=== PATIENT | male | born 1960 | race Caucasian/White ===

== ENCOUNTER → 2016-06-05 | Outpatient (CLI) | payer OTHER ==
[~2016-06-05] VITALS: Ht 170.2 cm; Wt 81.3 kg
[~2016-06-05] MED LIST: AMARYL4 MG; CELEBREX 200 M200 M1 PO; FENOFIBRATE160 MG PO; HYDROCODON-ACE1 EAC5 PO; HYDROCODONE-AP1 EAC6 PO; INVOKAMET 150-1 EACH PO; INVOKANA300 MG PO; LIALDA1.2 GM PO; LIPITOR10 MG; LISINOPRIL5 MG PO; MEDROLDOSEPACK PO; METFORMIN HCL500 MG PO; NEURONTIN 300300 M1 PO; NEURONTIN100 MG PO; PAXIL10 MG PO; PROTONIX40 M1 PO; VICTOZA PO; ZANAFLEX4 MG PO
--- NOTE | ~2016-06-05 | HPC ---
[facility] [place] [address] PAIN MANAGEMENT CONSULTATION Name: MOMO BURCH RENUKA Room #: REG [facility] [place]#: [id number] Admission: 06/05/16 Attend Phys: Romulo Ramires MD Discharge: Date of : 64 Report #: [id number] THIS REPORT FOR: //name// CC: Ron Ramires DATE OF SERVICE: 06/05/2016 FOLLOWUP COMPLAINT: New pain in the right shoulder after lifting a mattress at work. FOLLOWUP HISTORY: The patient is a 55-year-old gentleman who has been followed in the pain clinic because of chronic pain in his back. He suffers from post-laminectomy syndrome. He is also status post C5-C6 diskectomy. He was working at his job about 4 days ago. 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 He lifted a mattress. Since that time, he has had pain and discomfort involving his right shoulder. He was unable to lift it from his side greater than 90 degrees. He was unable to raise it in front of him greater than 90 degrees. Moving his arm posteriorly is not quite as problematic. He rates his pain as a 9/10 in the right shoulder. His left low back area is rated as a 4/10 at this juncture. He finds that his shoulder shows some signs of spasming. He has not taken antispasmodic at this juncture, but has used Zanaflex in the past and found that this was helpful. MEDICATIONS: Hydrocodone one p.o. q. 8 hours p.r.n. pain, gabapentin 300 mg 1 p.o. t.i.d., Zestril 5 mg, Amaryl 4 mg, Invokana 300 mg, Paxil 10 mg, Protonix 40 mg, Lipitor 10 mg, Glucophage 500 mg b.i.d., fenofibrate 160 mg, Lialda 1.2 grams daily. IMPRESSION: 1. Right shoulder pain quite problematic at this juncture after lifting a mattress while at work. We will provide the patient with a Medrol Dosepak. He has pain and discomfort in the right trapezius scaphoid scapula and shoulder area in the anterior deltoid and posterior deltoid areas. 2. Status post C5-C6 diskectomy. 3. Osteoarthritis, status post bilateral hip replacement in 2002. 4. Management of high risk medications. RECOMMENDATIONS: We discussed treatment options with the patient. At this juncture, we will provide the patient with Zanaflex 4 mg 1 p.o. t.i.d., Ava 10/325 one p.o. q. 8 hours p.r.n. pain and gabapentin 300 mg 1 p.o. t.i.d. He will take the Medrol Dosepak as prescribed. Hopefully, this will help that shoulder pain calm down. We explained that sometimes trigger points can be helpful. Given that he has a global level of discomfort, no specific trigger [address] [address] PAIN MANAGEMENT CONSULTATION Name: MOMO BURCH Room #: REG [facility] Sarah#: [id number] Admission: 06/05/16 Attend Phys: Romulo Ramires MD Discharge: Date of : 64 Report #: [id number] point can be found today. If his pain continues to be problematic, it may in the future require imaging to determine whether or not he has a rotator cuff tear. We would like to thank you for letting us participate in his care. We hope he continues to improve. <ELECTRONICALLY SIGNED> By: Romulo Ramires MD 06/26/16 1018 [id number] [id number] Romulo Ramires MD /nt
[2016-06-05 08:55] VITALS: BP 115/69
== END ==
LOC: PAIN 07:05
DX: M16.0 Bilateral primary osteoarthritis of hip (principal); M96.1 Postlaminectomy syndrome, not elsewhere classified; F17.210 Nicotine dependence, cigarettes, uncomplicated

== ENCOUNTER → 2016-10-03 | Outpatient (CLI) | payer OTHER ==
[~2016-10-03] VITALS: Ht 170.2 cm; Wt 80.6 kg
--- NOTE | ~2016-10-03 | HPC ---
[facility] [place] [address] PAIN MANAGEMENT CONSULTATION Name: MOMO BURCH [id number] Admission: 10/03/16 Attend Phys: Romulo Ramires MD Discharge: Date of : 64 Report #: [id number] THIS REPORT FOR: //name// CC: Ron Ramires DATE OF SERVICE: 10/03/2016 DATE OF SERVICE: 10/03/2016 PRIMARY PHYSICIAN: Ron Elliott M.D. CHIEF COMPLAINT: There is some pain in the area where the nerve stimulator replacement is. FOLLOWUP HISTORY: The patient is a 56-year-old gentleman, who has been followed in the pain clinic because of low back pain and neck pain. He states that he has a spinal cord stimulator in place. He finds that is helpful. He states that the battery is sore in the area of his buttocks. He notes that when he is working, it could be quite problematic. 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 When he gets on his back and crawls on certain places, it could be quite painful. He feels that his medications are helpful. He has not noted any fevers, chills nor has he noted any significant breakdown in the area of the generator. He feels that this generator was larger than the old one and because of this he does not sit in the old pocket as well. PHYSICAL EXAMINATION: Blood pressure 127/76, pulse 91, respiratory rate 14, room air saturation 96%. The patient has a generator in the right buttocks area. He has little subcutaneous fat. In the upper left corner of the generator, there is an area of reddening. The skin has not broken down. Pressure in this area causes the patient to note increased pain and discomfort. This area is without subcutaneous fat and appears quite thin. Palpation in this area as well as in the lower portion of the generator cause the patient to feel uncomfortable to light palpation and movement of the generator. IMPRESSION: 1. Chronic intractable back pain, status post L4-L5 fusion. 2. Severe left hip pain status post hip replacement. 3. Cervicalgia. Status post C5 diskectomy as stimulator placement up in the cervical area. 4. Management of high risk medications. RECOMMENDATIONS: We discussed treatment options with the patient. We will renew his gabapentin, hydrocodone, Celebrex and tizanidine. Evaluation of the generator area indicates some thinning of the skin in the left upper quadrant with some slight reddening. There is no evidence of breakdown, [place] [address] PAIN MANAGEMENT CONSULTATION Name: MACRINMOMO RENUKA Room #: REG [facility]#: [id number] Admission: 10/03/16 Attend Phys: Romulo Ramires MD Discharge: Date of : 64 Report #: [id number] significantly thin. Light touch in this area does cause increased pain and discomfort. RECOMMENDATIONS: We have discussed this with the patient. I would recommend that he see his physician for reevaluation of the generator area. The patient will follow up in the next month with Dr. Pantoja. We would like to thank you for letting us participate in his care. We hope he continues to improve. By: [id number] [id number] Romulo Ramires MD /nt
[2016-10-03 09:54] VITALS: BP 127/76
== END ==
LOC: PAIN 07:08
DX: G89.29 Other chronic pain (principal); M25.552 Pain in left hip; Z96.642 Presence of left artificial hip joint; F17.210 Nicotine dependence, cigarettes, uncomplicated; F32.9 Major depressive disorder, single episode, unspecified

== ENCOUNTER → 2016-11-01 | Outpatient (CLI) | payer OTHER ==
[~2016-11-01] VITALS: Ht 170.2 cm; Wt 82.1 kg
[~2016-11-01] MED LIST changes: +CHANTIX1 MG PO
--- NOTE | ~2016-11-01 | HPC ---
[facility] [place] [address] PAIN MANAGEMENT CONSULTATION Name: MOMO BURCH [id number] Admission: 11/01/16 Attend Phys: Jad Pantoja MD Discharge: Date of : 64 Report #: [id number] THIS REPORT FOR: //name// CC: Ron Pantoja DATE OF SERVICE: 11/01/2016 Followup visit for chronic low back pain and cervicalgia with spinal cord stimulator. I am seeing the patient in followup, he saw Dr. Ramires on 10/03. His incision is healing from his spinal cord stimulator battery replacement, but there is quite a bit of edema in the pocket. This is a new pocket, so edema is not uncommon. I did not aspirate it. To see if it is serous, I felt that it would be better to leave the pocket intact since there is no drainage and the wound is healing nicely. It does not appear to be infected, but we will watch it carefully. He is here today for renewal of his pain medication. Pain score is a 6-7/10. He continues to use medicines as described before under terms of our opioid agreement. Some Percocet was given to him at the time of surgery and he acknowledged that to me today, I have agreed that he can take some of that. He does not notice much difference between the Percocet and the oxycodone for pain relief. Medications currently therefore are Celebrex 200 mg daily, gabapentin 300 mg t.i.d., hydrocodone 10/325 one tablet t.i.d., tizanidine as needed, Chantix, hydrocodone 10/325 or the remaining postoperative oxycodone 10/325 q.8 hours as needed for pain. Renewal prescriptions were provided to carry him through the next 2 months to 3 months and I will see him back in the clinic as needed for renewal. We reviewed our opioid contract in detail, the importance, the responsibilities of the patient. Urine drug screens will be performed periodically. By: [id number] [id number] Jad Pantoja MD /nt
[2016-11-01 12:42] VITALS: BP 111/71
== END | disposition home or self-care (01) ==
LOC: PAIN 06:43
DX: M54.5 Low back pain (principal); M54.2 Cervicalgia; F17.210 Nicotine dependence, cigarettes, uncomplicated; Z98.890 Other specified postprocedural states; Z79.899 Other long term (current) drug therapy

== ENCOUNTER → 2017-01-30 | Outpatient (CLI) | payer OTHER ==
[~2017-01-30] VITALS: Ht 170.2 cm; Wt 81.9 kg
[~2017-01-30] MED LIST changes: +[UNRECOGNIZED DRUG - OTHER] PO
--- NOTE | ~2017-01-30 | HPC ---
[facility] [address] [place] [address] PAIN MANAGEMENT CONSULTATION Name: MOMO BURCH Room #: REG [facility] Gertrude.#: [id number] Admission: 01/30/17 Attend Phys: Romulo Ramires MD Discharge: Date of : 64 Report #: [id number] THIS REPORT FOR: //name// CC: Ron Ramires DATE OF SERVICE: 01/30/2017 FOLLOWUP COMPLAINT: Here for medication refill and the pain where the stimulator pack is much more comfortable. FOLLOWUP HISTORY: The patient is a 56-year-old gentleman. As you recall, he works in the [employer]. He had an area of thinning scan where his generator pack was placed. He has had that examined and improved upon. He finds this medications continued to be helpful. He would like to have his medications renewed. He has had no complications with them. PHYSICAL EXAMINATION: Blood pressure 142/87, respiratory rate 16, room air saturation is 97%, pulse 83, height 5 feet 7 inches, weight 180 pounds, BMI is 28. He rates his pain score today as a 6-7. IMPRESSION: 1. History of right shoulder pain status post C5-C6 diskectomy. Dorsal column stimulator placement in the neck. 2. History of osteoarthritis, status post bilateral hip replacement in 2002. 3. High-risk medication management. RECOMMENDATIONS: We discussed treatment options with the patient. We will renew his medications. Risks and benefits of opioid medications have been discussed. Possibility of addiction and tolerance were reviewed. The patient feels that his medications continued to be helpful and enable him to remain gainfully employed. We will renew the patient's opioid medications. A script for hydrocodone one p.o. t.i.d. and gabapentin have been renewed. He will also continue with Celebrex and tizanidine. We would like to thank you for letting us participate in his care. We hope he continues to improve. By: 0923 1516 Romulo Ramires MD /MALOU
[2017-01-30 08:56] VITALS: BP 142/87
== END ==
LOC: PAIN 06:55
DX: M54.5 Low back pain (principal)

== ENCOUNTER → 2017-02-28 | Outpatient (CLI) | payer OTHER ==
[~2017-02-28] VITALS: Ht 170.2 cm; Wt 83.0 kg
[~2017-02-28] MED LIST changes: +NEURONTIN600 MG PO; +OXYCODONE-APAP1 EAC6 PO
--- NOTE | ~2017-02-28 | HPC ---
[facility] [address] [address] PAIN MANAGEMENT CONSULTATION Name: MOMO BURCH Room #: REG [facility] Gertrude.#: [id number] Admission: 02/28/17 Attend Phys: Jad Pantoja MD Discharge: Date of : 64 Report #: [id number] THIS REPORT FOR: //name// CC: Ron Pantoja DATE OF SERVICE: 02/28/2017 Follow up visit for chronic shoulder and neck pain as well as pain in the low back and generalized arthropathy. The patient is here today complaining of pain in multiple locations. Pain is in his neck and low back, but also he says he has joint pain related to many joints, which have been found arthritic. He has had bilateral hip replacement, left in 2002 and right later in the same year, he had an L4-L5 fusion in 2007, he had a C5-C6 anterior cervical diskectomy in 2007. 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 At the end of the day from fighting his pain, he says he is worn out, tired, and fatigue. He has been using pain medications under terms of an opioid agreement. He was referred to us to help with this medication by Dr. Ron Elliott. We have had several discussions about the medication and again we discussed the importance of using medications carefully under terms of our agreement. We have discussed the CDC guidelines in the opioid crisis in the [place]. Good part of our visit today was in education. He scores his pain today as a 6/10. He says the spinal cord stimulator that he has helped some, but it changes its pattern during sleep with increased stimulation when he is supine, so he has to adjust it. He has an unusual set up with cervical lead and second mid thoracic lead, both powered by the same IPG in his right hip. Typically, we do not see 2 separate areas stimulated by a single lead as his stimulator is doing. Given his report today, I would say that its benefit has been modest. He still requires oral medication. Medications provided the clinic are hydrocodone 10/325 four tablets daily, Celebrex 200 mg 1 tablet daily, gabapentin 300 mg 5 tablets daily for 1500 mg, and tizanidine 4 mg t.i.d. These medications were last provided for him on 01/30 when he saw my partner, Dr. Ramires. Today, he reports that the hydrocodone is not as effective before even 4 tablets. We have talked about opioid rotation. I would like to avoid giving him multiple tablets a day and we are always concerned about escalation of opioids. We talked about nonpharmacologic measures to help manage pain and also nonopioid medications such as gabapentin. I would like to increase his [facility] [address] [place] [address] PAIN MANAGEMENT CONSULTATION Name: MARCINMOMO RENUKA Room #: REG [facility] Sarah#: [id number] Admission: 02/28/17 Attend Phys: Jad Pantoja MD Discharge: Date of : 64 Report #: [id number] gabapentin dose today to 600 mg t.i.d., this is a fairly small increase, but hopefully the larger dose taken less frequently will be okay. PHYSICAL EXAMINATION: His affect is depressed. He seems a little bit frustrated by his ongoing pain. Blood pressure 128/82, heart rate is 97, oxygen saturation 95, and his BMI is 28.7. He has bilateral wheezing. He is a 2-pack a day smoker. His neck is tender as his low back. He has tenderness in multiple joints including hips and elbows. IMPRESSION: 1. Chronic intractable pain with multiple pain generators. 2. Status post cervical and lumbar spinal cord stimulator on the same system with same IPG. 3. Heavy tobacco use, he was counseled. 4. Management of high risk medication. PLAN: Change in medication will be as follows: Celebrex 200 mg once daily, gabapentin 600 mg t.i.d., and oxycodone 7.5/325 t.i.d. Importance of safeguarding medication and using it as prescribed was discussed. His morphine mg equivalent now is roughly 30 MME per day well under the CDC guideline of 90. We will see him back in the pain clinic in 3 months. Time spent with the patient roughly 25 minutes. By: 1137 [id number] Jad Pantoja MD /nt
[2017-02-28 12:40] VITALS: BP 128/82
== END | disposition home or self-care (01) ==
LOC: PAIN 07:07
DX: G89.29 Other chronic pain (principal); M25.50 Pain in unspecified joint; F17.200 Nicotine dependence, unspecified, uncomplicated; Z79.891 Long term (current) use of opiate analgesic; Z98.890 Other specified postprocedural states; Z96.643 Presence of artificial hip joint, bilateral

== ENCOUNTER → 2017-05-30 | Outpatient (CLI) | payer OTHER ==
[~2017-05-30] VITALS: Ht 170.2 cm; Wt 81.0 kg
--- NOTE | ~2017-05-30 | HPC ---
[facility] [place] [address] PAIN MANAGEMENT CONSULTATION Name: MOMO BURCH RENUKA Room #: REG [facility] Sarah#: [id number] Admission: 05/30/17 Attend Phys: Tr Leblanc DO Discharge: Date of : 64 Report #: [id number] THIS REPORT FOR: //name// CC: Ron Leblanc The patient is a 56-year-old gentleman, typically treated by Dr. Jad Pantoja for lumbar radiculopathy status post decompressive laminectomy, axial back pain, history of cervical decompressive laminectomy, requiring high risk complex medication management. The patient has both cervical and lumbar spinal cord stimulators. He was last seen in the pain clinic 02/28/2017. He had been stable on hydrocodone 10/325, but found dwindling efficacy. At last visit, Dr. Pantoja rotated the patient to Percocet 7.5/325 three a day. Continued on gabapentin 300 mg, had been up to 5 a day and was weaned down to 4 a day. Continued on Celebrex 200 mg a day and tizanidine for spasm. Last random drug screen 02/28/2017, was positive for hydrocodone as expected, gabapentin, and cotinine. The patient presented to the pain clinic today for medication management followup. The patient became quite disgruntled and ended the clinic visit abrupty, cursing at the nurse on his way out. The patient came to the clinic noting that his pain was primarily low back, right greater than left hip. Rated his pain as 6 on a VAS. He felt that the rotation at last visit to Percocet 7.5/325 t.i.d. was causing more constipation than the prior hydrocodone had. He wished to rotate back to hydrocodone. PHYSICAL EXAMINATION: Showed a 56-year-old gentleman, BMI is 28 kg/m2. Blood pressure is 113/87, pulse is 86, respirations are 14, BMI is 28 kg/m2. He is alert and oriented to person, place and time, judged to be a reasonable historian. Rises from the chair using armrest. Gait is tandem. He can walk on his toes and heels. Lumbar flexion is limited to about 45 degrees. Palpation of the cervical and thoracolumbar spine shows no significant scoliosis. There is some diffuse tenderness primarily in the low thoracic, upper lumbar paravertebral muscles. No discrete trigger points are noted. Again, lumbar flexion is limited. He has an IPG in the right gluteal area. Again, a single lead in the cervical spine, a single lead in the lumbar spine (the latter per the patient). I started to discuss with the patient today concerns for ongoing axial back pain and concurrent nicotine use. I pointed out that there was a large body of clinical evidence-based medicine correlating tobacco use with axial back pain. I strongly recommended smoking cessation as a part of his back pain treatment regimen. I suggested that we could rotate back from Percocet to hydrocodone 10/325, but continue the limit at 3 tablets a day as needed for pain. I told him if he quit smoking, we could likely start to increase that dose and/or look for other agents that may be efficacious. [address] [address] PAIN MANAGEMENT CONSULTATION Name: MOMO BURCH Room #: REG [facility] Sarah#: [id number] Admission: 05/30/17 Attend Phys: Tr Leblanc DO Discharge: Date of : 64 Report #: [id number] At this point, the patient became belligerent, crossed his arms across his chest and told me that I could keep my prescriptions and that the medicines were not working. I suggested that I would be willing to write for hydrocodone and gabapentin and that he should consider smoking cessation, the patient told the nurse that she could keep the discharge papers and "shove them up her ass". We asked the patient to leave the clinic at that point. He did. There is no followup appointment made at this time. The patient states he is out of his hydrocodone; he is not currenlty exhibiting any opiate withdrawal symptoms. He had weaned down on gabapentin from 5 a day to 4 a day. I suggested if he had any tablets at home, he could take 1 or 2 a day until the gabapentin tablets were gone. Should he have no gabapentin tablets at home, it is unlikely that dropping from 1800 mg of gabapentin to zero use should provoke withdrawal symptoms in this patient with no seizure history (use of this agent was for neuropathic pain). As the patient ended the office visit so abruptly and declined my offer to provide an Rx for hydrocodone, I was unable to provide a "weaning dose" of oxycodoen or hydrocodone. I suspect that at a maximum dose of 22.5 mg oxycodone daily for the past month, he should not have life threatening withdrawal symptoms, if he has any symptoms at all. <ELECTRONICALLY SIGNED> By: Tr Leblanc DO 05/31/17 0949 [id number] [id number] Tr Leblanc DO /nt
[2017-05-30 13:42] VITALS: BP 113/87
== END ==
LOC: PAIN 06:43
DX: M54.16 Radiculopathy, lumbar region (principal); M54.9 Dorsalgia, unspecified; Z98.890 Other specified postprocedural states; Z79.899 Other long term (current) drug therapy